=== PATIENT | female | born 1995 | race Caucasian/White ===

== ENCOUNTER 2017-02-19 17:52 | Emergency (ER) | payer SELFPAY ==
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
--- NOTE | 2017-02-19 18:28 | CPEKG ---
Heart Rate: 62 RR Interval: 968 P-R Interval: 144 QRSD Interval: 74 QT Interval: 400 QTC Interval: 407 P [place]: 62 QRS Russell: 80 T Wave Russell: 59 EKG Severity - ABNORMAL ECG - EKG Impression: SINUS RHYTHM EKG Impression: BORDERLINE T ABNORMALITIES, ANT-LAT LEADS EKG Impression: ST ELEVATION SUGGESTS PERICARDITIS Electronically Signed By: Norman Coburn 27-Feb-2017 12:36:42
--- NOTE | 2017-02-19 18:28 | CPEKG ---
Heart Rate: 62 RR Interval: 968 P-R Interval: 144 QRSD Interval: 74 QT Interval: 400 QTC Interval: 407 P [place]: 62 QRS [place]: 80 T Wave [place]: 59 EKG Severity - ABNORMAL ECG - EKG Impression: SINUS RHYTHM EKG Impression: BORDERLINE T ABNORMALITIES, ANT-LAT LEADS EKG Impression: ST ELEVATION SUGGESTS PERICARDITIS Electronically Signed By: Norman Coburn 27-Feb-2017 12:36:42
[2017-02-19] MEDS ORDERED: ACETAMINOPHEN 325 MG TAB PO ONE (18:34)
[2017-02-19 18:36] LABS: PLATELET COUNT 196 10^3/uL (150-400)
[2017-02-19 19:33] VITALS: BP 117/67; PULSE 71; RESP 16; TEMP 98.2; O2SAT 96
== END 2017-02-19 19:32 | disposition home or self-care (01) ==
DX: R55 Syncope and collapse (principal); F41.9 Anxiety disorder, unspecified